=== PATIENT | male | born 1975 | race Caucasian/White ===

== ENCOUNTER 2020-05-17 11:57 | Emergency (ER) | payer BC, OTHER ==
[~2020-05-17] VITALS: Ht 185.4 cm; Wt 127.0 kg
[~2020-05-17 11:57] MED LIST: DILAUDID1 MG/ML INJ; NKM; ONDANSETRON ODT4 MG PO; REGLAN10 MG PO; VALIUM5 MG PO
[2020-05-17 12:15] VITALS: BP 136/89
--- NOTE | 2020-05-17 12:15 | NUR ---
ED Nurse Note: pt presents to ED c/o rib pain. pt reports falling down stair last week. the pain now radiates into his abdomen and hurts when he takes deep breaths. pt denies head trauma, ambulatory with steady gait. no obvious deformities or ecchymosis is noted upon visual examination
--- NOTE | 2020-05-17 12:22 | NUR ---
ED Nurse Note: pt ambulated with steady gait to CT with engineer technician, will medicate when pt returns
[2020-05-17] MEDS ORDERED: Methocarbamol 750mg tab ORAL ONE (12:30)
[2020-05-17] MEDS ORDERED: Ketorolac 30mg Inj IM ONE (12:30)
--- NOTE | 2020-05-17 13:41 | Emergency Room Report ---
History of Present Illness General Chief Complaint: Pain Present Illness HPI 44-year-old male with no significant past medical history here status post fall from stairs. Patient reports that he missed a step as he was going down the stairs about 6 days ago and he comes after falling however he landed on his right sided chest and has been complaining of 10 out of 10 right lower rib pain now radiating to right-sided abdomen and lower back. Complains of shortness of breath. Has been taking Advil and Tylenol with minimal relief. Denies any hematuria, blood in stool. Denies any head injury or loss of consciousness. No signs of ecchymosis noted. Denies all other injuries. Denies taking any blood thinners. Denies nausea vomiting. 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 Patient History Past Medical History: see triage record Past Surgical History: none Pertinent Family History: none Reviewed Nursing Documentation: PMH: Agreed; PSxH: Agreed Nursing Documentation-PMH Hx Cardiac Problems: No Hx Hypertension: Yes Hx Asthma: Yes Hx Cancer: No Hx Gastrointestinal Problems: Yes Hx Neurological Problems: No Review of Systems All Other Systems: negative except mentioned in HPI Physical Exam Vital Signs Date Time Temp Pulse Resp B/P (MAP) Pulse Ox O2 Delivery O2 Flow Rate FiO2 05/17/20 12:10 98.1 95 19 136/89 (105) 95 Room Air Sp02 EP Interpretation: reviewed, normal General Appearance: no apparent distress, alert, GCS 15, non-toxic Head: normocephalic, atraumatic Eyes: bilateral eye normal inspection, bilateral eye PERRL ENT: hearing grossly normal, normal pharynx, no angioedema, normal voice Neck: full range of motion, supple/symm/no masses Respiratory: chest non-tender, lungs clear, normal breath sounds, speaking full sentences Cardiovascular #1: regular rate, rhythm, no edema Gastrointestinal: normal bowel sounds, non tender, soft, non-distended, no guarding, no rebound Rectal: deferred Genitourinary: no CVA tenderness Musculoskeletal: back normal, digits/nails normal, pelvis stable, non-tender Neurologic: alert, motor strength/tone normal, oriented x3, sensory intact, responsive, speech normal Psychiatric: judgement/insight normal, memory normal, mood/affect normal, no suicidal/homicidal ideation Skin: no rash Lymphatic: no adenopathy Medical Decision Making PA Attestation ALL Diagnosis and treatment plan reviewed and discussed with my supervising physician Dr. Washburn Diagnostic Impression: Primary Impression: Chest wall contusion ER Course 44-year-old male with no significant past medical history here status post fall from stairs. Patient reports that he missed a step as he was going down the stairs about 6 days ago and he comes after falling however he landed on his right sided chest and has been complaining of 10 out of 10 right lower rib pain now radiating to right-sided abdomen and lower back. Complains of shortness of breath. Has been taking Advil and Tylenol with minimal relief. Denies any hematuria, blood in stool. Denies any head injury or loss of consciousness. No signs of ecchymosis noted. Denies all other injuries. Denies taking any blood thinners. Denies nausea vomiting. Ddx considered but are not limited to: Pneumothorax, rib fracture, chest contusion Vital signs: are WNL, pt. is afebrile H&PE are most consistent with chest contusion ORDERS: CT chest abdomen pelvis noncontrast, IBuprofen, flexeril as patient mentions he has hard time sleeping at night time due to pain, lidocaine patch, prednisone ED INTERVENTIONS: Toradol IM DISCHARGE: At this time pt. is stable for d/c to home. Will provide printed patient care instructions, and any necessary prescriptions. Care plan and follow up instructions have been discussed with the patient prior to discharge.take medication as directed follow up with primary care provider. if worsening symptoms return to the Emergency room CT/MRI/US Diagnostic Results CT/MRI/US Diagnostic Results : Imaging Test Ordered: CT chest abdomen pelvis no contrast Impression FINDINGS: Lung bases: Unremarkable. No consolidation. No effusions. ABDOMEN: Liver: Unremarkable. Gallbladder and bile ducts: Status post cholecystectomy. No ductal dilation. Pancreas: Unremarkable. No ductal dilation. Spleen: Unremarkable. No splenomegaly. Adrenals: Unremarkable. No mass. Kidneys and ureters: Unremarkable. No obstructing stones. No hydronephrosis. Stomach and bowel: Mild diffuse colonic fecal retention, which may suggest constipation. Postsurgical changes in the GE junction, stomach, small bowel. No abnormal wall thickening in the stomach, small bowel, colon. No obstruction. PELVIS: Appendix: No findings to suggest acute appendicitis. Bladder: Unremarkable. No stones. Reproductive: Unremarkable as visualized. ABDOMEN and PELVIS: Intraperitoneal space: Unremarkable. No free air. No significant fluid colle ction. Bones/joints: Mild degenerative joint space narrowing and marginal osteophytes in the right hip joint. No visible fracture or dislocation in the lumbar spine or pelvis. Soft tissues: Unremarkable. Vasculature: Atherosclerosis throughout the abdominal aorta and its proximal branches. No abdominal aortic aneurysm. Lymph nodes: Unremarkable. No enlarged lymph nodes. IMPRESSION: 1. No acute traumatic findings in the abdomen or pelvis. 2. Mild diffuse colonic fecal retention, which may suggest constipation. Last Vital Signs Date Time Temp Pulse Resp B/P (MAP) Pulse Ox O2 Delivery O2 Flow Rate FiO2 05/17/20 12:15 98.1 90 19 136/89 95 Room Air Disposition: HOME, SELF-CARE Condition: Stable Patient Instructions: Chest Contusion, [id number] Additional Instructions: take medication as directed follow up with primary care provider. if worsening symptoms return to the Emergency room Heber Greenwood May 17, 2020 13:41
--- NOTE | 2020-05-17 13:48 | Diagnostic Imaging Report ---
EXAM: CT Chest Without Intravenous Contrast CLINICAL HISTORY: TRAUMA TECHNIQUE: Axial computed tomography images of the chest without intravenous contrast. Sagittal and coronal reformatted images were created and reviewed. Combined chest, abdomen, and pelvis CT exam CTDI is 22.40 mGy and DLP is 1659.20 mGy-cm. One or more of the following dose reduction techniques were used: automated exposure control, adjustment of the mA and/or kV according to patient size, use of iterative reconstruction technique. COMPARISON: No relevant prior studies available. FINDINGS: Lungs: 8 mm noncalcified nodule in the right middle lobe (series 3 image 67). Pleural space: Unremarkable. No pneumothorax. No effusion. Heart: Coronary artery calcifications. Bones/joints: Minimally displaced fracture along the anterior aspect of the right 8th rib. Subtle cortical irregularity along the anterior aspect of the right 7th, 9th, and 10th ribs and along the anterior aspect of the left 4th and 5th ribs may represent subtle nondisplaced buckle fracture deformities. No dislocation. Soft tissues: Unremarkable. Vasculature: Unremarkable. No thoracic aortic aneurysm. Lymph nodes: Unremarkable. No enlarged lymph nodes. IMPRESSION: 1. Minimally displaced fracture along the anterior aspect of the right 8th rib. 2. Possible nondisplaced cortical buckle fractures along the anterior aspect of the right 7th, 9th, and 10th ribs and along the anterior aspect of the left 4th and 5th ribs. 3. Coronary artery calcifications. 4. 8 mm noncalcified nodule in the right middle lobe (series 3 image 67). Fleischner Society Guidelines in low-risk patients (minimal or absent history of smoking or other known risk factors) recommend chest CT follow- up at 6-12 months. If stable consider an additional follow-up CT at 18- 24 months. For high-risk patients (history of smoking or other known risk factors) recommend chest CT follow-up in 6-12 months and then at 18- 24 months. EXAM: CT Abdomen and Pelvis Without Intravenous Contrast CLINICAL HISTORY: TRAUMA TECHNIQUE: Axial computed tomography images of the abdomen and pelvis without intravenous contrast. Sagittal and coronal reformatted images were created and reviewed. Combined chest, abdomen, and pelvis CT exam CTDI is 22.40 mGy and DLP is 1659.20 mGy-cm. One or more of the following dose reduction techniques were used: automated exposure control, adjustment of the mA and/or kV according to patient size, use of iterative reconstruction technique. COMPARISON: CT abdomen pelvis dated 06/22/12 FINDINGS: Lung bases: Unremarkable. No consolidation. No effusions. ABDOMEN: Liver: Unremarkable. Gallbladder and bile ducts: Status post cholecystectomy. No ductal dilation. Pancreas: Unremarkable. No ductal dilation. Spleen: Unremarkable. No splenomegaly. Adrenals: Unremarkable. No mass. Kidneys and ureters: Unremarkable. No obstructing stones. No hydronephrosis. Stomach and bowel: Mild diffuse colonic fecal retention, which may suggest constipation. Postsurgical changes in the GE junction, stomach, small bowel. No abnormal wall thickening in the stomach, small bowel, colon. No obstruction. PELVIS: Appendix: No findings to suggest acute appendicitis. Bladder: Unremarkable. No stones. Reproductive: Unremarkable as visualized. ABDOMEN and PELVIS: Intraperitoneal space: Unremarkable. No free air. No significant fluid collection. Bones/joints: Mild degenerative joint space narrowing and marginal osteophytes in the right hip joint. No visible fracture or dislocation in the lumbar spine or pelvis. Soft tissues: Unremarkable. Vasculature: Atherosclerosis throughout the abdominal aorta and its proximal branches. No abdominal aortic aneurysm. Lymph nodes: Unremarkable. No enlarged lymph nodes. IMPRESSION: 1. No acute traumatic findings in the abdomen or pelvis. 2. Mild diffuse colonic fecal retention, which may suggest constipation.
[2020-05-17] MEDS ORDERED: PREDNISONE20 MG ORAL (13:56)
[2020-05-17] MEDS ORDERED: IBU800 MG PO (13:56)
[2020-05-17] MEDS ORDERED: CYCLOBENZAPRINE10 MG ORAL (13:56)
[2020-05-17] MEDS ORDERED: LIDODERM700 M1 TOPIC (13:56)
[2020-05-17] MEDS ORDERED: Acetaminophen 500mg (ES) tab ORAL ONE ×2 (13:59→14:00)
--- NOTE | 2020-05-17 14:04 | NUR ---
ER DISCHARGE NOTE: Patient is cleared to be discharged per ERMD, pt is aox4, on room air, with stable vital signs. pt was given dc and prescription instructions, pt was able to verbalize understanding, pt id band removed without complications. pt is able to ambulate with steady gait. pt took all belongings.
[2020-05-17 14:05] VITALS: BP 136/89
== END 2020-05-17 14:05 | disposition home or self-care (01) ==
LOC: EMR 12:30
DX: S20.211A Contusion of right front wall of thorax, initial encounter (principal); I10 Essential (primary) hypertension; J45.909 Unspecified asthma, uncomplicated; W10.9XXA Fall (on) (from) unspecified stairs and steps, initial encounter; Y93.01 Activity, walking, marching and hiking; Y92.9 Unspecified place or not applicable; Z88.5 Allergy status to narcotic agent
CPT/HCPCS: 71250; 74176; 96372; 99284; J1885